=== PATIENT | female | born 1980 | race Caucasian/White ===

== ENCOUNTER 2017-02-25 06:04 | Emergency (ER) | payer OTHER ==
[~2017-02-25] VITALS: Ht 165.1 cm; Wt 93.2 kg
[2017-02-25] VITALS (10 sets, daily range): BP systolic 100–130; BP diastolic 50–65; PULSE 99–137; RESP 16–18; TEMP 100–101.4; O2SAT 93–99
[~2017-02-25 06:04] MED LIST: ALPR-138 PO; OXYC-360 PO
[2017-02-25] MEDS ORDERED: ACETAMINOPHEN 325 MG TAB PO ONE (07:00)
[2017-02-25] MEDS ORDERED: ONDANSETRON HCL 4 MG/2 ML VIAL IV PUSH ONE (07:00)
--- NOTE | 2017-02-25 07:00 | PD ---
HPI Chief Complaint: Fever Time Seen by Provider: 06:51 Travel History International Travel<30 days: No Contact w/Intl Traveler<30days: No Traveled to known affect area: No History of Present Illness HPI The patient is a 36-year-old female who complains of fever, chills, vomiting that began at 3:00 this morning. She has a headache which is a global headache of gradual onset. She denies any diarrhea. She denies any dysuria, frequency, urgency or flank pain. She does have a cough which is getting worse but still nonproductive. She thinks she has some shortness of breath. She does smoke three fourths packs a day. She states she has had a tubal ligation and cannot be . She is a [facility] patient of Dr. Jv Bran. [facility] Past Medical History Cardiovascular Problems: No Gastrointestinal Disorders: Yes (HEMORRIODS AND BLED LAST WEEK) GERD: No Genitourinary: No Headaches: Yes ("CLUSTER") Hiatal Hernia: No Musculoskeletal: No Neurologic: No Reproductive: No Respiratory: No Ulcer: No Influenza Vaccination: No ?: Not : 1 Para: 1 Tubal Ligation: Yes Past Surgical History Abdominal Surgery: Yes (C SECTION) Cardiac Surgery: No Section: Yes (X 2004) Ear Surgery: No Endocrine Surgery: No Eye Surgery: No Genitourinary Surgery: No Gynecologic Surgery: No Oral Surgery: No Thoracic Surgery: No Other Surgery: Yes (C SECTION AND BREAST AUGMENTATION/breast reduction) Social History Alcohol Use: Yes (SOCIALLY) Tobacco Use: Yes (1/2 PPD) Substance Use: No Allergies-Medications (Allergen,Severity, Reaction): Coded Allergies: No Known Allergies (Verified , 08/25/10) Reported Meds & Prescriptions Reported Meds & Active Scripts Active Reported Percocet (Oxycodone/Acetaminophen) 5 Mg/325 Mg Tab 1 Tab PO Q4HPRN FOR PAIN Xanax (Alprazolam) 0.25 Mg Tab 0 PO DIRECTED UNKNOWN DOSE- PRN FOR ANXIETY Review of Systems Except as stated in HPI: all other systems reviewed are Neg Physical Exam Narrative GENERAL: The patient is alert, oriented 3 in moderate apparent distress with her headache and nausea. Her vital signs show heart rate of 137, repeat temperature is 101.3 and oximetry is 95% on room air. HEAD: Atraumatic. Normocephalic. EYES: Pupils equal and round. No scleral icterus. No injection or drainage. ENT: No nasal bleeding or discharge. Mucous membranes pink and moist. NECK: Trachea midline. No JVD. There is no meningismus and the patient flexes neck fully without any hesitation. CARDIOVASCULAR: Regular rate and rhythm. No murmur appreciated. RESPIRATORY: No accessory muscle use. Clear to auscultation. Breath sounds equal bilaterally. GASTROINTESTINAL: Abdomen soft, non-tender, nondistended. Hepatic and splenic margins not palpable. MUSCULOSKELETAL: No obvious deformities. No clubbing. No cyanosis. No edema. NEUROLOGICAL: Awake and alert. No obvious cranial nerve deficits. Motor grossly within normal limits. Normal speech. PSYCHIATRIC: Appropriate mood and affect; insight and judgment normal. Data Data Last Documented VS Vital Signs Date Time Temp Pulse Resp B/P (MAP) Pulse Ox O2 Delivery O2 Flow Rate FiO2 02/25/17 06:47 101.3 02/25/17 06:33 135 18 96 Room Air Orders Orders Complete Blood Count With Diff (02/25/17 06:51) Comprehensive Metabolic Panel (02/25/17 06:51) Lactic Acid Sepsis Protocol (02/25/17 06:51) Lipase (02/25/17 06:51) Urinalysis - C+S If Indicated (02/25/17 06:51) Influenzae A/B Antigen (02/25/17 06:51) Blood Culture (02/25/17 06:51) Chest, Pa & Lat (02/25/17 06:51) Arterial Blood Gas (Abg) (02/25/17 06:51) Ecg Monitoring (02/25/17 06:51) Iv Access Insert/Monitor (02/25/17 06:51) Oximetry (02/25/17 06:51) Oxygen Administration (02/25/17 06:51) Acetaminophen (Tylenol) (02/25/17 07:00) Ondansetron Inj (Zofran Inj) (02/25/17 07:00) MDM Medical Decision Making Medical Screen Exam Complete: Yes Emergency Medical Condition: Yes Medical Record Reviewed: Yes Differential Diagnosis Sepsis, pneumonia, bronchitis, gastritis, pancreatitis, dehydration, electrolyte disorder, flu syndrome Narrative Course It is now 0700 and the patient is transferred to Dr. Portillo. Sepsis Criteria SIRS Criteria (2 or more): Temp > 100.9 or < 96.8, Heart rate over 90 Reagan Jaeger MD Feb 25, 2017 07:00
[2017-02-25 07:10] LABS: BLOOD GAS BASE EXCESS -0.9 mmol/L (-2-2); BLOOD GAS CARBOXYHEMOGLOBIN 3.2 % (0-4); BLOOD GAS HCO3 23 mmol/L (22-26); BLOOD GAS METHEMOGLOBIN 1.4 % (0-2); BLOOD GAS O2 HGB SATURATION 90 % (90-100); BLOOD GAS OXYGEN CONTENT 16.3 Vol % (12.0-20.0); BLOOD GAS PCO2 36 mmHG (38-42); BLOOD GAS PO2 69 mmHG (61-120); CRITICAL VALUE NO; DRAW SITE RT RADIAL; FIO2 21 %; NUMBER OF ARTERIAL PUNCTURES 1; STAT YES; TEMP CORR TO 98.6; ULNAR PULSE PRESENT
[2017-02-25 07:12] LABS: AUTOMATED NEUTROPHIL # 7.4 TH/MM3 (1.8-7.7); BASOPHIL % 0.2 % (0.0-2.0); EOSINOPHIL # 0.1 TH/MM3 (0-0.4); EOSINOPHIL % 0.8 % (0.0-4.0); HEMO FLAGS DIFF FINAL; LYMPH % 10.4 % (9.0-44.0); LYMPHOCYTE # 0.9 TH/MM3 (1.0-4.8); MEAN CELL VOLUME 91.1 FL (80.0-100.0); MEAN CORPUSCULAR HEMOGLOBIN 30.5 PG (27.0-34.0); MEAN CORPUSCULAR HGB CONC 33.5 % (32.0-36.0); MONO % 2.2 % (0.0-8.0); NEUT % 86.4 % (16.0-70.0); PLATELET COUNT 275 TH/MM3 (150-450); RED CELL DISTRIBUTION WIDTH 12.7 % (11.6-17.2); WHITE BLOOD COUNT 8.6 TH/MM3 (4.0-11.0)
[2017-02-25 07:14] LABS: GLUCOSE,URINE NEG (NEG); KETONE, URINE TRACE mg/dL (NEG); NITRITE,URINE NEG (NEG); PH, URINE 5.5 (5.0-8.5)
[2017-02-25] MEDS ORDERED: SODIUM CHLOR 0.9% 1000 ML INJ 1,000 ML IV ONE (07:15)
[2017-02-25 07:17] LABS: BLOOD, URINE TRACE (NEG)
[2017-02-25 07:18] LABS: METHOD OF COLLECTION CLEAN CATCH; URINE COLOR YELLOW (YELLW/STRAW)
[2017-02-25 07:19] LABS: BACTERIA, URINE OCC /hpf; COMMENT (UR) CULT NOT INDICATED; CULTURE IF INDICATED CULT NOT INDICATED; RBC, URINE 0-3 /hpf (0-3); WBC, URINE 0-2 /hpf (0-5)
[2017-02-25 07:20] LABS: CHLORIDE 101 MEQ/L (98-107); POTASSIUM 3.8 MEQ/L (3.5-5.1); SODIUM (NA) 137 MEQ/L (136-145)
[2017-02-25 07:24] LABS: ANION GAP 10 MEQ/L (5-15); BICARBONATE 26.4 MEQ/L (21.0-32.0); BLOOD UREA NITROGEN 9 MG/DL (7-18)
[2017-02-25 07:27] LABS: ALT (GPT) 70 U/L (10-53); AST (GOT) 59 U/L (15-37); GLOMERULAR FILTRATION RATE 97 ML/MIN (>89)
[2017-02-25 07:28] LABS: TOTAL BILIRUBIN ADULT 0.4 MG/DL (0.2-1.0)
[2017-02-25 07:30] LABS: ALKALINE PHOSPHATASE 62 U/L (45-117)
--- NOTE | 2017-02-25 07:59 | RADRPT ---
EXAM DATE/TIME: 02/25/2017 06:57 [place] COMPARISON: No previous studies available for comparison. INDICATIONS : Cough,fever and flu symptoms for 1 day. MEDICAL HISTORY : None. SURGICAL HISTORY : None. ENCOUNTER: Initial ACUITY: 1 day PAIN SCORE: 8/10 LOCATION: Bilateral upper chest FINDINGS: PA and lateral views of the chest demonstrate the lungs to be symmetrically, but under aerated withou t evidence of mass, infiltrate or effusion. The cardiomediastinal contours are unremarkable. Osseou s structures are intact. CONCLUSION: Hypoinflation with no acute cardiopulmonary process. Skip Carreon MD on February 25, 2017 at 7:57 Board Certified Radiologist. This report was verified electronically.
[2017-02-25] MEDS ORDERED: IBUPROFEN 600 MG TAB PO ONE (08:15)
--- NOTE | 2017-02-25 08:36 | PD ---
Physical Exam Narrative GENERAL: Well-nourished, well-developed patient. well appearing SKIN: Warm and dry. HEAD: Normocephalic and atraumatic. EYES: No injection or drainage. ENT: No nasal drainage noted. NECK: Supple, trachea midline. CARDIOVASCULAR: Regular rate and rhythm RESPIRATORY: no increased effort. No accessory muscle use. NEUROLOGICAL: Awake and alert. Motor and sensory grossly within normal limits. Normal speech. steady gait Data Data Last Documented VS Vital Signs Date Time Temp Pulse Resp B/P (MAP) Pulse Ox O2 Delivery O2 Flow Rate FiO2 02/25/17 08:20 100.0 99 16 100/50 (67) 99 Room Air 02/25/17 07:55 2.00 Orders Orders Complete Blood Count With Diff (02/25/17 06:51) Comprehensive Metabolic Panel (02/25/17 06:51) Lactic Acid Sepsis Protocol (02/25/17 06:51) Lipase (02/25/17 06:51) Urinalysis - C+S If Indicated (02/25/17 06:51) Influenzae A/B Antigen (02/25/17 06:51) Blood Culture (02/25/17 06:51) Chest, Pa & Lat (02/25/17 06:51) Arterial Blood Gas (Abg) (02/25/17 06:51) Ecg Monitoring (02/25/17 06:51) Iv Access Insert/Monitor (02/25/17 06:51) Oximetry (02/25/17 06:51) Oxygen Administration (02/25/17 06:51) Acetaminophen (Tylenol) (02/25/17 07:00) Ondansetron Inj (Zofran Inj) (02/25/17 07:00) Sodium Chlor 0.9% 1000 Ml Inj (Ns 1000 M (02/25/17 07:15) Ibuprofen (Motrin) (02/25/17 08:15) Labs Laboratory Tests Test 02/25/17 06:30 02/25/17 06:37 02/25/17 07:00 Urine Collection Type CLEAN CATCH Urine Color YELLOW Urine Turbidity CLEAR Urine pH 5.5 Urine Specific [place] 1.014 Urine Protein NEG mg/dL Urine Glucose (UA) NEG mg/dL Urine Ketones TRACE mg/dL Urine Occult Blood TRACE Urine Nitrite NEG Urine Bilirubin NEG Urine Leukocyte Esterase NEG Urine RBC 0-3 /hpf Urine WBC 0-2 /hpf Urine Squamous Epithelial Cells 6-8 /hpf Urine Bacteria OCC /hpf Microscopic Urinalysis Comment CULT NOT INDICATED Urine Collection Time 06:30 White Blood Count 8.6 TH/MM3 Red Blood Count 4.50 MIL/MM3 Hemoglobin 13.7 GM/DL Hematocrit 41.0 % Mean Corpuscular Volume 91.1 FL Mean Corpuscular Hemoglobin 30.5 PG Mean Corpuscular Hemoglobin Concent 33.5 % Red Cell Distribution Width 12.7 % Platelet Count 275 TH/MM3 Mean Platelet Volume 8.6 FL Neutrophils (%) (Auto) 86.4 % Lymphocytes (%) (Auto) 10.4 % Monocytes (%) (Auto) 2.2 % Eosinophils (%) (Auto) 0.8 % Basophils (%) (Auto) 0.2 % Neutrophils # (Auto) 7.4 TH/MM3 Lymphocytes # (Auto) 0.9 TH/MM3 Monocytes # (Auto) 0.2 TH/MM3 Eosinophils # (Auto) 0.1 TH/MM3 Basophils # (Auto) 0.0 TH/MM3 CBC Comment DIFF FINAL Differential Comment Blood Urea Nitrogen 9 MG/DL Creatinine 0.68 MG/DL Random Glucose 112 MG/DL Total Protein 8.4 GM/DL Albumin 3.8 GM/DL Calcium Level 8.7 MG/DL Alkaline Phosphatase 62 U/L Aspartate Amino Transf (AST/SGOT) 59 U/L Alanine Aminotransferase (ALT/SGPT) 70 U/L Total Bilirubin 0.4 MG/DL Sodium Level 137 MEQ/L Potassium Level 3.8 MEQ/L Chloride Level 101 MEQ/L Carbon Dioxide Level 26.4 MEQ/L Anion Gap 10 MEQ/L Estimat Glomerular Filtration Rate 97 ML/MIN Lactic Acid Level 2.0 mmol/L Lipase 127 U/L Blood Gas Puncture Site RT RADIAL Blood Gas Patient Temperature 98.6 Blood Gas HCO3 23 mmol/L Blood Gas Base Excess -0.9 mmol/L Blood Gas Oxygen Saturation 90 % Arterial Blood pH 7.42 Arterial Blood Partial Pressure CO2 36 mmHG Arterial Blood Partial Pressure O2 69 mmHG Arterial Blood Oxygen Content 16.3 Vol % Arterial Blood Carboxyhemoglobin 3.2 % Arterial Blood Methemoglobin 1.4 % Blood Gas Hemoglobin 13.0 G/DL Oxygen Delivery Device NONE Blood Gas Inspired Oxygen 21 % MDM Supervised Visit with MALIK: No Interpretation(s) CBC & BMP Diagram 02/25/17 06:37 Total Protein 8.4 H, Albumin 3.8, Calcium Level 8.7, Alkaline Phosphatase 62, Aspartate Amino Transf (AST/SGOT) 59 H, Alanine Aminotransferase (ALT/SGPT) 70 H , Total Bilirubin 0.4 Last 24 hours Impressions Chest X-Ray 02/25/17 0651 Signed Impressions: Service Date/Time: Saturday, February 25, 2017 06:57 - CONCLUSION: Hypoinflation with no acute cardiopulmonary process. Skip Carreon MD Narrative Course Signed over to me to reevaluate after lab work and imaging. Labs, chest x-ray, influenza, urinalysis without emergent process. Patient feeling better after Tylenol and Motrin IV fluid hydration. Vitals have improved.Patient denies any new complaints and states that they are feeling better. Patient happy with care , all questions answered. Patient knows that follow up is incumbent on them and to return to the emergency room immediately if new or worsening symptoms develop. Patient given strict return precautions, vitals reviewed and are normal , agrees to further workup as an outpatient. Diagnosis Primary Impression: Fever Qualified Codes: R50.9 - Fever, unspecified Patient Instructions: General Instructions Additional Instruction: Return as needed, follow with primary tomorrow, alternate Tylenol and Motrin, keep hydrated Med/Other Pt SpecificInfo: No Change to Meds Scripts No Active Prescriptions or Reported Meds Disposition: 01 DISCHARGE HOME Condition: Stable Aida Arciniega MD Feb 25, 2017 08:36
== END 2017-02-25 09:01 | disposition home or self-care (01) ==
LOC: PHED 06:04
DX: R50.9 Fever, unspecified (principal); R06.02 Shortness of breath; F17.200 Nicotine dependence, unspecified, uncomplicated
CPT/HCPCS: 36600; 71020; 80053; 81001; 82805; 83605; 83690; 85025; 87040; 87804; 96361; 96374; 99284; J2405; J7030